=== PATIENT | female | born 1950 | race Caucasian/White ===

== ENCOUNTER 2023-06-05 10:10 | Observation (INO) ==
[~2023-06-05 10:10] MED LIST: Naloxone 0.4 mg VIAL 0.4 mg/ml 1 ml VIAL IV PRN; Ondansetron 4 mg VIAL 2 MG/ML 2 ml VIAL IV PRN
[2023-06-05] MEDS ORDERED: ceFAZolin 2 GM PREMIX 2 GM/50 ML BAG ONE (10:25)
[2023-06-05] MEDS ORDERED: Tranexamic Acid 1 GM/100ML BAG 2,000 MG/200 ML BAG IV ONE (10:25)
[2023-06-05] MEDS ORDERED: Ondansetron 4 mg VIAL 2 MG/ML 2 ml VIAL ONE ×2 (11:04→12:05)
[2023-06-05 11:12] LABS: Rapid COVID-19 Molecular Undetected (Undetected)
[2023-06-05] MEDS ORDERED: Midazolam 2 mg/2 ml VIAL 1 mg/ml 2 ml VIAL (2 mg) ONE ×2 (11:33→12:08)
[2023-06-05] MEDS ORDERED: Dexamethasone IV 4 MG/ML VIAL 1 ml VIAL ONE ×2 (11:33→12:05)
[2023-06-05] MEDS ORDERED: ROPIVACAINE 5 MG/ML 30 ML BTL (0.5%) ONE ×2 (11:42→12:10)
[2023-06-05] MEDS ORDERED: HYDROmorphone 0.5 MG/0.5 ML SYRINGE ONE (11:44)
[2023-06-05] MEDS ORDERED: Propofol 10 MG/ML 20 ML BTL ONE ×2 (12:05→14:56)
[2023-06-05] MEDS ORDERED: Glycopyrrolate IV 0.2 MG/ML 1 ML VIAL ONE (12:05)
[2023-06-05] MEDS ORDERED: fentaNYL 100 mcg/2 ml 50 MCG/ML VIAL ONE ×2 (12:08→15:52)
[2023-06-05] MEDS ORDERED: Bupivacaine-MPF SPINAL 7.5 MG/ML - 2ML AMP ONE (12:09)
[2023-06-05] MEDS ORDERED: Lactulose 30 ml UDC PO PRN (13:47)
[2023-06-05] MEDS ORDERED: Ondansetron ODT 4 mg TAB 4 MG TAB PO PRN (13:47)
[2023-06-05] MEDS ORDERED: Morphine 2 MG/ML SYRINGE IV PRN (13:47)
[2023-06-05] MEDS ORDERED: Magnesium Hydroxide LIQ 30 ML UDC PO PRN (13:47)
[2023-06-05] MEDS ORDERED: Scopolamine 1 mg/72hr PATCH TRANSDERM PRN (13:57)
[2023-06-05] MEDS: fentaNYL 100 mcg/2 ml 50 MCG/ML VIAL IV PRN (15:52)
[2023-06-05] MEDS: Lactated Ringers 1000 ml BAG 1,000 ML IV SCH (17:58)
[2023-06-05] MEDS: Ondansetron 4 mg VIAL 2 MG/ML 2 ml VIAL IV PRN (21:19)
[2023-06-05] MEDS: ceFAZolin 1 GM ADVAN 1 GM in NS 0.9% 50 ML 50 ML IVPB SCH (21:20)
[2023-06-05] MEDS: Magnesium Hydroxide LIQ 30 ML UDC PO SCH (21:26)
[2023-06-06 06:27] LABS: Hematocrit 38.1 % (35-45); Hemoglobin 13.2 g/dL (11.5-14.3); Mean Platelet Volume 8.7 fL (7.5-11.2); Platelet Count 285 10^3/uL (150-450)
[2023-06-06 06:43] LABS: Calcium 8.5 mg/dL (8.6-10.3); Creatinine, Serum 0.79 mg/dL (0.51-0.95); Potassium 3.8 mmol/L (3.5-5.0); eGFR CKD-EPI 78.4 (>60)
[2023-06-06] MEDS: Vitamin THERAPEUTIC TAB PO SCH (10:18)
== END 2023-06-06 13:15 | disposition home or self-care (01) ==
LOC: OR 10:10 → SSU 10:10
PROVIDERS: ADMIT Orthopaedic Surgery Adult Reconstructive Orthopaedic Surgery; ATTEND Orthopaedic Surgery Adult Reconstructive Orthopaedic Surgery